=== PATIENT | male | born 1990 | race Caucasian/White ===

== ENCOUNTER 2018-03-08 11:04 | Emergency (ER) | payer OTHER ==
[~2018-03-08] VITALS: Ht 193 cm; Wt 83.9 kg
[2018-03-08] MEDS ORDERED: OMNIPRED10 ML OPTH (11:17)
[2018-03-08] MEDS ORDERED: CLEAR EYES REDN30 ML OPTH (11:36)
== END 2018-03-08 11:45 | disposition home or self-care (01) ==
LOC: ED 11:04
DX: H11.31 Conjunctival hemorrhage, right eye (principal); W22.8XXA Striking against or struck by other objects, initial encounter
CPT/HCPCS: 99283